=== PATIENT | male | born 1980 | race Caucasian/White ===

== ENCOUNTER → 2018-03-11 | Outpatient (CLI) | payer OTHER | LOC: FIMAGING 07:53 | PROVIDERS: ATTEND Family Medicine | DX: M24.412 Recurrent dislocation, left shoulder (principal); M24.10 Other articular cartilage disorders, unspecified site; S43.492A Other sprain of left shoulder joint, initial encounter; M24.812 Other specific joint derangements of left shoulder, not elsewhere classified ==

== ENCOUNTER 2018-08-21 04:18 | Emergency (ER) | payer MEDICAID, OTHER ==
--- NOTE | 2018-08-21 04:26 | EDPHY ---
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 This was unwitnessed fall. EMS reports he had a large amount of alcohol to drink tonight is unable to ambulate appropriately. Arrives in stable condition highly intoxicated with alcohol to the ER. Blood glucose reported normal by EMS. Blood sugar reported 132 by EMS. Past Medical History: Unknown medical history Past Surgical History: Unknown surgical history Social History: Large amount of alcohol this evening. Homeless. Family History: Unknown ROS REVIEW OF SYSTEMS: Limited due to alcohol intoxication Exam Constitutional intoxicated, smells of alcohol triage nursing summary reviewed, vital signs reviewed, awake/alert. Eyes normal conjunctivae and sclera, EOMI, PERRLA. HENT head neck atraumatic except left occiput shows a scalp hematoma with laceration 3 cm horizontally oriented, moist mucus membranes, no epistaxis, neck supple/ no meningismus, no raccoon eyes. Respiratory clear to auscultation bilaterally, normal breath sounds, no respiratory distress, no wheezing. Cardiovascular rate normal, regular rhythm, no murmur, no edema, distal pulses normal. Gastrointestinal soft, non-tender, no rebound, no guarding, normal bowel sounds, no distension, no pulsatile mass. Genitourinary no CVA tenderness. Musculoskeletal no midline vertebral tenderness, full range of motion, no calf swelling, no tenderness of extremities, no meningismus, good pulses, neurovascularly intact. Skin pink, warm, & dry, no rash, skin atraumatic. Neurologic intoxicated, smells of alcohol, slurring speech, awake, alert and oriented x 3, AAOx3, moves all 4 extremities equally, motor intact, sensory intact, CN II-XII intact, normal cerebellar, normal vision Psychiatric normal mood/affect. Heme/Lymph/Immune no lymphadenopathy. Differential Diagnosis: Includes but is not limited to in a particular order acute alcohol intoxication, closed-head injury, intracranial bleed, subdural, traumatic subarachnoid, skull fracture, scalp hematoma, scalp laceration Medical Decision Making: Plan for this patient breath alcohol, fingerstick glucose, CT scan head without contrast and neck scan without contrast for trauma will need to clean his left occiput scalp hematoma and laceration. And repair. Re-evaluation: Laceration Repair Procedure: Verbal Consent was obtained, Under sterile conditions, 3CM Left occiput scalp laceration was cleaned/and repaired with TWO COLLEEN . The wound was copiously irrigated with sterile fluid, the wound was explored for foreign bodies there were none visualized, the wound was explored with a sterile glove to the base. There are no deep structures involved, including no arterial injury. TWO COLLEEN were placed in this patient's laceration. He had good close approximation of the wound edges. He Tolerated this well. Patient's wound was copiously irrigating clean. Patient understands have colleen removed in 7 days. Breath alcohol Is 233 at 5:[address] scan head without contrast and CT cervical spine without contrast faxed to me by direct Radiology at 5:30 a.m. This is negative for acute intracranial finding no acute traumatic injury of the cervical spine or head. 0709: Attempted at road test patient still is too unsteady on gait. Patient need more time to sober. Re-evaluation. Signed over to Dr. Spencer at 7am. Re-eval, once more sober he can be discharged from er. (Clyde Doyle) Constitutional: Initial Vital Signs Temperature (C) 36.3 C 08/21/18 04:26 Heart Rate 73 08/21/18 04:26 Respiratory Rate 18 08/21/18 04:26 Blood Pressure 135/86 H 08/21/18 04:26 O2 Sat (%) 95 08/21/18 04:26 O2 Delivery Mode Room Air Allergies/Adverse Reactions: eggplant Allergy (Uncoded 07/22/13 19:56) Home Medications: Medication Instructions Recorded NK [No Known Home Meds] 08/21/18 Medical Decision Making ED Course/Re-evaluation: 0 700: Patient is signed out to me at change of shift. The patient is awaiting a tablet sedation of his alcohol. He is improving per report. Patient is not yet ready to ambulate on his own. On recheck the patient is doing better. He is able to ambulate. (Iris Helms) Departure - Departure Disposition: Home, Routine, Self-Care Clinical Impression: Alcoholic intoxication, Scalp hematoma, Laceration of head Condition: Good Instructions: Laceration (ED), Alcohol Intoxication (ED), Abuse of Alcohol (ED) , Staple Care (ED) Additional Instructions: 1. Your colleen in your scalp need to be removed in 7 days. Referrals: [facility],. [Clinic] - 3-4 days, if not improved
[2018-08-21 08:13] VITALS: BP 114/87
== END 2018-08-21 08:45 | disposition home or self-care (01) ==
LOC: EDUNIT#
PROC: 0HQ0XZZ Repair Scalp Skin, External Approach (ICD-10-PCS; principal; 2018-08-21)
DX: S01.01XA Laceration without foreign body of scalp, initial encounter (principal); F10.920 Alcohol use, unspecified with intoxication, uncomplicated; Z59.0 Homelessness; W19.XXXA Unspecified fall, initial encounter; Y90.7 Blood alcohol level of 200-239 mg/100 ml

== ENCOUNTER 2018-08-24 21:12 | Emergency (ER) | payer MEDICAID ==
--- NOTE | 2018-08-24 21:56 | EDPHY ---
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 He was found with alcohol on his breath and signs of obvious head trauma. The patient is unable to provide much history. He does report using heavy alcohol this evening. Patient arrives with a bleeding laceration noted to his forehead and a scalp hematoma. He is currently in cervical spine precautions. REVIEW OF SYSTEMS: A comprehensive 10 point review of systems is otherwise negative aside from elements mentioned in the history of present illness. (Villa Rehman) - Physical Exam Exam: General Appearance: Disheveled, alcohol on breath, uncooperative Head: Scalp hematoma, 2 cm forehead laceration Eyes: Pupils equal, round, reactive ENT, Mouth: No hemotympanum, no oral trauma Neck: Nontender, trachea midline, in cervical collar Respiratory: No chest wall tenderness, no subcutaneous air, lungs clear bilaterally, old ecchymosis noted to right anterior chest wall Cardiovascular: Regular rate and rhythm Abdomen: Abdomen is soft and nontender, pelvis stable Skin: No lacerations, No abrasion Back: No midline T/L/S pain Extremities: Nontender, full range of motion Neurological: GCS 15, 5/5 strength all 4 extremities (Villa Rehman) Constitutional: Initial Vital Signs Temperature (C) 36.3 C 08/24/18 21:23 Heart Rate 105 H 08/24/18 21:23 Respiratory Rate 17 08/24/18 21:23 Blood Pressure 149/99 H 08/24/18 21:23 O2 Sat (%) 95 08/24/18 21:23 O2 Delivery Mode Room Air Allergies/Adverse Reactions: eggplant Allergy (Uncoded 07/22/13 19:56) Home Medications: Medication Instructions Recorded NK [No Known Home Meds] 08/21/18 Medical Decision Making - Diagnostics Imaging Results: Imaging Impressions Cervical Spine CT 08/24/18 22:09 Impression: 1. No evidence of acute cervical spine fracture or subluxation. Dr. Meeks was notified of these findings by telephone at 11:07 PM on 08/24/2018. Head CT 08/24/18 22:09 Impression: Frontal scalp hematoma without evidence of acute intracranial hemorrhage or calvarial fracture.. Dr. Meeks was notified of these findings by telephone at 11:07 PM on 08/24/2018. Procedures: Procedure: Laceration repair. Verbal consent was obtained from the patient. The 3 cm complex, stellate laceration on the forehead was anesthetized using lidocaine with epinephrine. The wound was irrigated per protocol, draped and explored to its base with a gloved finger. There were no deep structures involved. The wound was repaired with Prolene sutures x4. The wound repair was simple. The procedure was performed by myself. (Villa Rehman) Procedure: Right shoulder Dislocation reduction. The dislocation of the right shoulder was reduced using counter traction with external rotation technique without complications. Post reduction the patient' s neurovascular exam is normal. Post reduction x-ray demonstrates reduction of the joint to the anatomic position. The procedure was performed by myself. (Baljinder Meeks) ED Course/Re-evaluation: Patient presents to the ED with significant forehead hematoma, alcohol intoxication and a facial laceration. Patient's laceration was repaired by myself using Ethilon sutures. The patient is agitated, combative and uncooperative. Given his head trauma and intoxication I did feel it important to obtain a CT scan of the head and cervical spine. 200 mg of IM ketamine was ordered for sedation. The patient was kept on a food manager. CT scan of the head and cervical spine was ordered by myself at 10:15 p.m.. Patient will be turned over to Dr. Meeks at shift change. (Villa Rehman) Differential Diagnosis: Differential diagnosis considered includes intracranial hemorrhage, skull fracture, cervical spine fracture, facial laceration (Villa Remhan) Other Provider: Care assumed from Dr. Rehman pending CT scan results and improvement in the sobriety. CT scan of the head and cervical spine are negative. Patient is still somnolent. Will continue to allowed to metabolize his alcohol. Patient is complaining of right shoulder pain. His clinically dislocated. X- rays confirm this. I have relocated the joint. He is feeling improved. Been placed in a sling. Repeat x-ray confirms placement. Patient is awake and ambulating. [facility]. (Baljinder Meeks) - Data Points Medications Given: Discontinued Medications Ketamine HCl (Ketamine) 200 mg IM EDNOW ONE Stop: 08/24/18 22:09 Last Admin: 08/24/18 22:24 Dose: 200 mg Departure - Departure Disposition: Home, Routine, Self-Care Clinical Impression: Alcohol intoxication, Facial laceration, Shoulder dislocation Condition: Good Instructions: Alcohol Intoxication (ED), Shoulder Dislocation (ED), Laceration (ED), Care For Your Stitches (ED) Additional Instructions: Sutures need to be removed in 5 days. Follow up with orthopedic surgeon regarding shoulder dislocation. Referrals: Mikal Aguilar MD [Medical Doctor] - As per Instructions
[2018-08-24] MEDS ORDERED: KETAMINE 500 MG/10 ML VIAL IM ONE (22:08)
[2018-08-25] MEDS ORDERED: CHLORDIAZEPOXIDE 25MG PREPK#6 BTL TAKEHOME ONE ×2 (03:39→03:40)
[2018-08-25 03:51] VITALS: BP 127/83
== END 2018-08-25 03:49 | disposition home or self-care (01) ==
LOC: EDUNIT#
PROC: 0HQ1XZZ Repair Face Skin, External Approach (ICD-10-PCS; principal; 2018-08-24)
PROC: 0RSJXZZ Reposition Right Shoulder Joint, External Approach (ICD-10-PCS; 2018-08-24)
DX: S01.81XA Laceration without foreign body of other part of head, initial encounter (principal); S43.004A Unspecified dislocation of right shoulder joint, initial encounter; F10.920 Alcohol use, unspecified with intoxication, uncomplicated
CPT/HCPCS: L3980

== ENCOUNTER 2018-08-25 13:13 | Emergency (ER) | payer MEDICAID ==
--- NOTE | 2018-08-25 13:42 | EDPHY ---
H & P Stated Complaint: ETOH Time Seen by Provider: 08/25/18 13:42 HPI/ROS: CHIEF COMPLAINT: Intoxicated HISTORY OF PRESENT ILLNESS: The patient is brought into the emergency department by paramedics with alcohol intoxication. The patient was seen here early this morning with alcohol intoxication and head trauma. That point time the patient had a CT scan of his head and cervical spine which were negative. The patient was observed in the emergency department and discharged home. The patient is unable to provide much history but does report using alcohol again today. He denies any history of a new fall or trauma. He denies additional acute complaints. REVIEW OF SYSTEMS: A comprehensive 10 point review of systems is otherwise negative aside from elements mentioned in the history of present illness. 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, r knee sx, l elbow sx, jaw reconstruction, ETOH - Social History Smoking Status: Current every day smoker - Physical Exam Exam: General Appearance: Intoxicated Head: Sutured laceration noted to forehead, hemostatic, no erythema or bleeding present Eyes: Pupils equal, round, reactive ENT, Mouth: No hemotympanum, no oral trauma Neck: Nontender, trachea midline Respiratory: No chest wall tender, no subcutaneous air, lungs clear bilaterally Cardiovascular: Regular rate and rhythm Abdomen: Abdomen is soft and nontender, pelvis stable Skin: No lacerations, No abrasion Back: No midline T/L/S pain Extremities: Nontender, full range of motion Neurological: Opens eyes to sternal rub, moves all 4 extremities with 5/5 strength Constitutional: Initial Vital Signs Temperature (C) 36.6 C 08/25/18 13:17 Heart Rate 89 08/25/18 13:17 Respiratory Rate 16 08/25/18 13:17 Blood Pressure 141/80 H 08/25/18 13:17 O2 Sat (%) 96 08/25/18 13:17 O2 Delivery Mode Room Air O2 (L/minute) 2 Allergies/Adverse Reactions: eggplant Allergy (Uncoded 08/25/18 13:18) Home Medications: Medication Instructions Recorded NK [No Known Home Meds] 08/21/18 Medical Decision Making ED Course/Re-evaluation: After some period of observation in the emergency department the patient is clinically sobered. He is ambulatory with minimal assistance. The patient is currently on a [employer] hold by the police department. Re-evaluated the patient at 6:00 p.m.. The patient will be transferred to the [facility] for further [facility]ing. No evidence of a new traumatic injury is notified on serial examinations. Departure - Departure Disposition: Home, Routine, Self-Care Clinical Impression: Alcohol intoxication, Forehead laceration Condition: Good Instructions: Laceration (ED) Additional Instructions: 1. Suture removal in 5 days. 2. The [facility] does have resources if you desire assistance with your alcohol dependence. Referrals: [facility] [Outside] - As per Instructions
[2018-08-25 17:50] VITALS: BP 119/81
== END 2018-08-25 18:15 | disposition home or self-care (01) ==
LOC: EDUNIT#
DX: F10.920 Alcohol use, unspecified with intoxication, uncomplicated (principal); S01.81XD Laceration without foreign body of other part of head, subsequent encounter

== ENCOUNTER 2018-08-26 22:51 | Emergency (ER) | payer MEDICAID ==
--- NOTE | 2018-08-26 23:01 | EDPHY ---
H & P Time Seen by Provider: 08/26/18 22:51 HPI/ROS: Chief Complaint: Shoulder pain HPI: Intoxicated 30-year-old male presenting with right shoulder pain. Patient states that he has been drinking. He ran into a wall with right shoulder and had the sudden onset of pain. He was seen here 2 nights ago by me. At that time he was noted to have a right shoulder dislocation which I reduced him he was placed in a sling. He has since remove the sling and does not currently know where it is. He has not followed up with orthopedics. He admits to drinking this morning. Denies any falls or head injuries. Otherwise is without complaint. ROS: 10 systems were reviewed and were negative except those elements noted in the HPI. Social History: Positive smoking, daily heavy alcohol, homeless Family History: non-contributory Physical Exam: Gen: Awake, Alert, smells of alcohol, slurred speech HEENT: Nose: no rhinorrhea Eyes: PERRLA, EOMI Mouth: Moist mucosa Neck: Supple, no JVD Chest: nontender, lungs clear to auscultation Heart: S1, S2 normal, no murmur Abd: Soft, non-tender, no guarding Back: no CVA tenderness, no midline tenderness Ext: Right shoulder deformity consistent with anterior dislocation Skin: no rash Neuro: CN II-XII intact, Sensation grossly intact, Strength 5/5 in bilateral upper and lower extremities Medical Decision Making Procedures: Procedure: Dislocation reduction. The dislocation of the right shoulder was reduced using counter traction and external rotation technique without complications. Post reduction the patient' s neurovascular exam is normal. Shoulder was reduced based on clinical inspection. Patient placed in a sling. The procedure was performed by myself. ED Course/Re-evaluation: 30-year-old male with right shoulder dislocation. He is intoxicated. Shoulders been reduced successfully by me without complication. He is intoxicated. Patient will be [facility] to the [facility]. Departure - Departure Disposition: Home, Routine, Self-Care Clinical Impression: Shoulder dislocation, Alcohol intoxication Condition: Good Instructions: Shoulder Dislocation (ED), Alcohol Intoxication (ED), Chlordiazepoxide (By mouth) Additional Instructions: Leave your right arm in a sling until your seen by Orthopedics. Please avoid drinking alcohol. Referrals: Mikal Aguilar MD [Medical Doctor] - As per Instructions
[2018-08-26] MEDS ORDERED: CHLORDIAZEPOXIDE 25MG PREPK#6 BTL TAKEHOME ONE (23:02)
[2018-08-27 00:31] VITALS: BP 107/78
== END 2018-08-27 00:14 | disposition home or self-care (01) ==
LOC: EDUNIT#
PROC: 0RSJXZZ Reposition Right Shoulder Joint, External Approach (ICD-10-PCS; principal; 2018-08-26)
DX: S43.004A Unspecified dislocation of right shoulder joint, initial encounter (principal); F10.920 Alcohol use, unspecified with intoxication, uncomplicated; W22.09XA Striking against other stationary object, initial encounter; Y92.9 Unspecified place or not applicable; Y99.9 Unspecified external cause status; Y93.9 Activity, unspecified

== ENCOUNTER 2018-12-26 11:25 | Emergency (ER) | payer MEDICAID | END 2018-12-26 15:27 | disposition home or self-care (01) ==